=== PATIENT | male | born 1960 | race Caucasian/White ===

== ENCOUNTER → 2016-06-25 | Outpatient (CLI) | payer OTHER ==
[~2016-06-25] MED LIST: CRESTOR10 MG PO; HYDROCODONE-AP1 EAC6 PO; NABUMETONE 750750 M1 PO; PREDNISONE 5 MG5 M1 PO
== END ==
LOC: MRI 09:26
DX: M51.26 Other intervertebral disc displacement, lumbar region (principal); M48.06 Spinal stenosis, lumbar region; M25.552 Pain in left hip; M71.552 Other bursitis, not elsewhere classified, left hip

== ENCOUNTER → 2016-07-03 | Outpatient (CLI) | payer OTHER ==
[~2016-07-03] VITALS: Ht 157.5 cm; Wt 69.2 kg
--- NOTE | ~2016-07-03 | HPC ---
[facility] [place] [address] [address] PAIN MANAGEMENT CONSULTATION Name: TD LUJAN Room #: REG [facility] MMelody.#: [id number] Admission: 07/03/16 Attend Phys: Jaylen Duarte DO Discharge: Date of : 60 Report #: [id number] THIS REPORT FOR: //name// CC: Arash Lee DO Jaylen Duarte The patient is a very pleasant 56-year-old gentleman, who was seen in consultation at the request of Dr. Lee for evaluation of pain, low back, left buttock, posterior thigh down to the foot. The patient notes the pain began in the end of April without antecedent trauma and overuse, pain has gradually gotten worse, he has now noted weakness, paresthesia in the low back, buttock and left leg. Denies saddle anesthesia or bowel or bladder continence changes. He has tried nabumetone, prednisone Dosepak and hydrocodone, which makes the pain "tolerable". He has tried physical therapy including stretching, heat and ice. Notes the pain is a 7-9 on a 0-10 visual analog scale, exacerbated with any and all movement. Describes symptoms that are continuous, burning and stabbing. REVIEW OF SYSTEMS: Complete review of systems attached to chart and gone over with the patient, is , does not smoke or drink alcohol to excess. History of renal insufficiency diagnosed as a child, has been on steroids supression for quite some time, currently takes prednisone 5 mg b.i.d. , dyslipidemia for which he takes Crestor. Otherwise, review of systems pretty unremarkable, did have right knee arthroscopy in 2013. 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 He has not lost significant work secondary to pain. Pain impact score; however, averages about 8.2 for all indices queried (51/70). PHYSICAL EXAMINATION: GENERAL: Reveals 5 feet 2 and 69 kilograms gentleman, BMI is 27.9 kg/m2. VITAL SIGNS: Blood pressure is 134/89, pulse 95 and respirations 16. NEUROLOGIC: Cranial 2-12 are grossly intact. HEENT: Pupils are equal, reactive to light and accommodation. Extraocular muscles are intact. NECK: Cervical range of motion is full. Thyroid unremarkable. Upper extremity strength is preserved. HEART: Regular and rhythmical without murmur. LUNGS: Clear to auscultation. The patient arises from chair using armrest, has mildly antalgic gait. EXTREMITIES: Favoring the left leg, lumbar flexion is quite limited to 40 degrees. Lower extremity strength is generally symmetric; however, about 4/5. Positive straight leg raise at 30 degrees on the left. Patellar and Achilles reflexes note modest diminution of the left patellar reflex. Achilles reflexes are symmetric. SKIN: Integument is intact. [facility] [address] [place] [address] PAIN MANAGEMENT CONSULTATION Name: TD LUJAN Room #: REG [facility].#: [id number] Admission: 07/03/16 Attend Phys: Jaylen Duarte DO Discharge: Date of : 60 Report #: [id number] DIAGNOSTIC STUDIES: Include MRI of the lumbar spine from 06/25/2016 noting L4-L5 to have a left paracentral disk extrusion. ASSESSMENT: Symptomatic lumbar radiculopathy by clinical exam, failing conservative therapy for greater than six weeks correlating with diagnostic MRI findings. RECOMMENDATIONS: 1. Continue nabumetone 70 b.i.d. I have taken the liberty of renewing hydrocodone 5/325, dispense 60 tablets one tablet q. 6 hours as needed for pain. 2. Fluoroscopic-guided epidural injection today at L4-L5. Followup in 3 weeks to evaluate efficacy. PROCEDURE NOTE: Lumbar epidural injection under fluoroscopy. PROCEDURE NOTE: After both written and informed consent to include risk of spinal cord damage, increased pain, weakness and dural puncture, the patient was taken to the fluoroscopy suite, placed in the prone position. After sterile prep and drape, a skin wheal with lidocaine was raised. A 22-gauge epidural Tuohy needle was inserted in the midline at L4-L5 with good loss to resistance. Negative aspiration for cerebrospinal fluid or blood was noted. Then 1 mL of Omnipaque under biplanar fluoroscopy showed good spread within the epidural space. This was followed with 80 mg of triamcinolone plus 1 mL of 1.5% preservative-free Xylocaine, 0.5 mL Xylocaine was then injected to flush the needle; it was removed. The patient was monitored for an appropriate period of time and discharged in good and stable condition. Thank you for allowing me to participate in the patient's care. I will keep you abreast of his progress. <ELECTRONICALLY SIGNED> By: Jaylen Duarte DO 07/07/16 0917 1708 0014 Jaylen Duarte DO /nt
[2016-07-03 14:42] VITALS: BP 134/89
== END ==
LOC: PAIN 07:22
DX: M54.16 Radiculopathy, lumbar region (principal)

== ENCOUNTER → 2016-09-19 | Outpatient (CLI) | payer OTHER ==
[~2016-09-19] VITALS: Ht 157.5 cm; Wt 68.9 kg
--- NOTE | ~2016-09-19 | HPC ---
[facility] [place] [address] [address] [place] [address] PAIN MANAGEMENT CONSULTATION Name: TD LUJAN Room #: REG [facility] Raisa.#: [id number] Admission: 09/19/16 Attend Phys: Jaylen Duarte DO Discharge: Date of : 60 Report #: [id number] THIS REPORT FOR: //name// CC: Arash Duarte The patient is a very pleasant 56-year-old gentleman being treated for symptomatic lumbar radiculopathy, left low back with a greater than 65% relief from 2 prior injections, initial injection on 07/03/2016, second injection 07/24/2016. The patient returns to pain clinic today, it has been greater than 30 days since his last injection. Again, he had 60+ percent relief with pain somewhat recurring more left lumbar radicular pattern. We reviewed his MRI noting left paracentral caudal disk extrusion at L4-L5 with associated mass effect on the left L5 nerve root. The last injection afforded 70% relief, lasting 6 weeks, pain has begun to reoccur. PHYSICAL EXAMINATION: Show pleasant 56-year-old gentleman, BMI is 27.8 kilograms per meter squared. Subjective pain score is 4-06/23/10. Blood pressure 146/77, pulse of 107, respirations 16. Rises from chair using armrest. Modestly antalgic gait, diffuse tenderness across the low back, positive straight leg raise on the left. ASSESSMENT: Symptomatic lumbar radiculopathy. RECOMMENDATION: 1. We will renew nabumetone prescription 750 mg b.i.d. We talked about general concerns with nonsteroidal antinflammatory medications and cardiac risk in general, talked about using the nabumetone on a nondaily basis. 2. Lumbar epidural injection under fluoroscopy today. 3. Follow up simply as needed. PROCEDURE NOTE: Lumbar epidural injection under fluoroscopy. PROCEDURE NOTE: After both written and informed consent to include risk of spinal cord damage, increased pain, weakness and dural puncture, the patient was taken to the fluoroscopy suite, placed in the prone position. After sterile prep and drape, a skin wheal with lidocaine was raised. A 22-gauge epidural Tuohy needle was inserted in the midline at L4-L5 with good loss to resistance. Negative aspiration for cerebrospinal fluid or blood was noted. Then 1 mL of Omnipaque under biplanar fluoroscopy showed good spread within the epidural space. This was followed with 80 mg of triamcinolone plus 1 mL of 1.5% preservative-free Xylocaine, 0.5 mL Xylocaine was then injected to flush the [address] [address] PAIN MANAGEMENT CONSULTATION Name: TD LUJAN Room #: REG [facility] Tiffany#: [id number] Admission: 09/19/16 Attend Phys: Jaylen Duarte DO Discharge: Date of : 60 Report #: [id number] needle; it was removed. The patient was monitored for an appropriate period of time and discharged in good and stable condition. By: [id number] Jaylen Duarte DO /nt
[2016-09-19 12:54] VITALS: BP 146/77
== END | disposition home or self-care (01) ==
LOC: PAIN 08-20 13:55
DX: M54.16 Radiculopathy, lumbar region (principal)

== ENCOUNTER → 2016-10-16 | Outpatient (CLI) | payer OTHER ==
[~2016-10-16] VITALS: Ht 157.5 cm; Wt 67.9 kg
[~2016-10-16] MED LIST changes: +ZANAFLEX4 MG PO
--- NOTE | ~2016-10-16 | HPC ---
[facility] [place] [address] [place] [address] PAIN MANAGEMENT CONSULTATION Name: TD LUJAN Room #: REG [facility] Raisa.#: [id number] Admission: 10/16/16 Attend Phys: Jaylen Duarte DO Discharge: Date of : 60 Report #: [id number] THIS REPORT FOR: //name// CC: Arash Duarte HISTORY OF PRESENT ILLNESS: The patient is a very pleasant 56-year-old gentleman being treated for symptomatic lumbar radiculopathy. He has had 3 epidural injections, 07/03/2016, 07/24/2016 and 09/19/2016. The patient notes that while each injection afforded good transient relief, symptoms have recurred. He has paresthesia in the lateral aspect of the left leg down to the foot and some pain in the left gluteal area. He notes nabumetone is really not helping much. He does take hydrocodone p.r.n. 5/325 on a nondaily basis. Incidentally, he does take prednisone 5 mg, which he has b.i.d. 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 We did review patient's MRI from 06/25/2016, L4-L5 notes left paracentral caudad disk extrusion into the left lateral recess associated with mass effect in the left ventral thecal sac and central left L5 nerve root. PHYSICAL EXAMINATION: Shows a pleasant 56-year-old gentleman, BMI is 27.4 kilograms per meter squared. Vital signs are stable as noted in the EMR. Rises from a chair using armrest. Gait is tandem. Positive straight leg raise on the left. Henry test is negative though he is a little tender over the left SI, strength is generally symmetric. ASSESSMENT: Symptomatic lumbar radiculopathy with a left L4-L5 herniated disk. Today, we discussed therapeutic options at length. I used a plastic spine model to describe patient's specific anatomy and suggested he may benefit from minimally invasive decompressive laminectomy. 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 He is familiar with back surgery, having seen this in the operating room. He is loathe to move forward with surgery if it can at all be avoided. I told him my concerns were for loss of strength, the paresthesia in the left lateral leg certainly is indicative of nerve root compromise, leading to concern that loss of strength may ensue. Fortunately, it appears to be not problematic at this time. His chief pain is pain in the left gluteal area. I believe this is all still along that L5 nerve root. RECOMMENDATIONS: Ultimately, we have elected to continue p.r.n. hydrocodone 5/325. In fact, I have taken the liberty of renewing his prescription for 60 tablets. We will start some tizanidine 4 mg up to t.i.d., have him discontinue the nabumetone due to lack of efficacy. Did suggest that he use [id number] naproxen sodium (Aleve) p.r.n. when he does yardwork and increased physical activity. [facility] [address] [place] [address] PAIN MANAGEMENT CONSULTATION Name: TD LUJAN Room #: REG CL[facility] Allen#: [id number] Admission: 10/16/16 Attend Phys: Jaylen Duarte DO Discharge: Date of : 60 Report #: [id number] Again, the patient was given contact information for Dr. Babak Bustos and Dr. Michael Wdadell. The patient again expressed desire to not move forward with surgery. He understands the risks and the "red flags" concerning progression of symptoms including weakness in the legs, saddle anesthesia or bowel or bladder continence changes. The patient was discharged in good and stable condition. <ELECTRONICALLY SIGNED> By: Jaylen Duarte DO 10/17/16 0925 1225 0012 Jaylen Duarte DO /nt
[2016-10-16 10:48] VITALS: BP 132/83
== END ==
LOC: PAIN 07:35
DX: M51.26 Other intervertebral disc displacement, lumbar region (principal); E11.9 Type 2 diabetes mellitus without complications

== ENCOUNTER → 2016-12-15 | Outpatient (CLI) | payer OTHER ==
[~2016-12-15] MED LIST changes: +NAPROSYN500 MG PO; +VALACYCLOVIR500 MG PO
--- NOTE | ~2016-12-15 | HPC ---
[facility] [address] [address] PAIN MANAGEMENT CONSULTATION Name: TD LUJAN Room #: REG [facility] Tiffany#: [id number] Admission: 12/15/16 Attend Phys: Jaylen Duarte DO Discharge: Date of : 60 Report #: [id number] THIS REPORT FOR: //name// CC: Arash Duarte The patient is a very pleasant 56-year-old gentleman being treated for symptomatic lumbar radiculopathy. He has had 3 lumbar epidural injections, June, July and August with overall improvement of left L4 radicular pain; however, symptoms continued to be problematic. It interferes with function. He has stopped mowing his yard due to pain. He is able to continue work, but notes the pain does interfere with function. Fortunately, he denies saddle anesthesia or bowel or bladder continence changes. We did talk today again at length about moving forward with minimally invasive decompressive laminectomy. PHYSICAL EXAMINATION: Shows pleasant 56-year-old gentleman. Vital signs are stable as noted in the EMR. Rises from chair using armrest. Gait is generally tandem. Slight decreased left hip flexion strength and lower extremity extension, though this is fairly nominal. Left patellar reflex is actually a bit ____ 3/4, right is 1/4, Achilles reflexes 1/4 and symmetric. Straight leg raise is nominally positive on the left. We reviewed the MRI, which does note herniated nucleus pulposus at L4-L5 compromising left L4-L5 neural foramen. The patient is taking hydrocodone 5/325 two or three a day as needed for pain, some days none. The patient to trial nabumetone, but had a little bit of heartburn with this. He is actually doing fairly well with [id number]-[id number] Aleve typically 2 tablets in the morning. We did talk today about concern for long-term use of nonsteroidal anti-inflammatory medications including cardiac disease, renal dysfunction and gastroesophageal reflux. ASSESSMENT: Symptomatic lumbar radiculopathy, having failed conservative therapy including epidural injections, physical therapy, nonsteroidal anti-inflammatory medications, currently taking some low dose opiate analgesics but noting pain is interfering with function. RECOMMENDATION: We will renew hydrocodone 5/325, enabling up to 4 tablets a day hence the patient get 120 tablets, 1 refill. I suspect that this should last for 45-60 days. We will refer the patient to Dr. Jamie Pittman for consideration for decompressive surgery. Follow up simply as needed. <ELECTRONICALLY SIGNED> By: Jaylen Duarte DO 12/19/16 1606 1248 1315 Jaylen Duarte DO /nt
[2016-12-15 12:37] VITALS: BP 142/96
== END | disposition home or self-care (01) ==
LOC: PAIN 06:55
DX: M54.16 Radiculopathy, lumbar region (principal); F11.90 Opioid use, unspecified, uncomplicated

== ENCOUNTER → 2017-02-06 | Outpatient (CLI) | payer OTHER | LOC: RAD 08:15 | DX: Z01.818 Encounter for other preprocedural examination (principal) ==

== ENCOUNTER → 2017-02-20 | Outpatient (CLI) | payer OTHER ==
[~2017-02-20] VITALS: Ht 157.5 cm; Wt 69.4 kg
--- NOTE | ~2017-02-20 | HPC ---
[facility] [place] [address] [address] [place] [address] PAIN MANAGEMENT CONSULTATION Name: TD LUJAN Room #: REG [facility] Raisa.#: [id number] Admission: 02/20/17 Attend Phys: Jaylen Duarte DO Discharge: Date of : 60 Report #: [id number] THIS REPORT FOR: //name// CC: Arash Duarte HISTORY OF PRESENT ILLNESS: The patient is a 57-year-old gentleman with ongoing lumbar radicular pain requiring high risk complex medication management. Last seen in the pain clinic on 12/15/2016. He had had a series of three epidural injections in June, July and August. He had ongoing lumbar radicular pain, I referred the patient to a surgeon and in fact he is having a decompressive laminectomy on 02/27/2017. Hopefully, this will be minimally invasive and in fact it is scheduled as an outpatient procedure. He is following up with Dr. Jamie Pittman for this. He has been stable on low dose opiate analgesic, hydrocodone 5/325 one tablet up to 4 times a day. Naprosyn 5 mg b.i.d., though he has discontinued this as appropriate 7 days prior to surgery. Using tizanidine for spasm. He returns to pain clinic today noting pain is 6 on a V ; notes intermittent burning, stabbing pain. He has been enthusiastic about moving forward with his surgery next week. PHYSICAL EXAMINATION: Otherwise unchanged, 57-year-old gentleman. BMI is 28 kilograms per meter squared. Vital signs stable. Modestly antalgic gait, diffuse tenderness across the low back. Slight decreased left leg pain with paresthesia into that foot. RECOMMENDATION: Continue hydrocodone 5/325, I have taken the liberty of writing for up to 120 tablets (q.i.d.) to wean after surgery; tizanidine 4 mg t.i.d., 90 with 1 refill. Hopefully, the patient will be able to completely wean off opiate analgesics following surgery. I have little doubt that this will occur. We will see the patient on an as needed basis. <ELECTRONICALLY SIGNED> By: Jaylen Duarte DO 02/26/17 0847 1223 2042 Jaylen Duarte DO /nt
[2017-02-20 13:06] VITALS: BP 154/78
== END | disposition home or self-care (01) ==
LOC: PAIN 12:57
DX: M54.16 Radiculopathy, lumbar region (principal); Z98.890 Other specified postprocedural states; Z79.899 Other long term (current) drug therapy

== ENCOUNTER → 2017-08-10 | Outpatient (CLI) | payer OTHER ==
[~2017-08-10] VITALS: Ht 157.5 cm; Wt 68.9 kg
[~2017-08-10] MED LIST changes: +CRESTOR20 MG PO; +HYDROCORTISONE PO; +MELATONIN5 M1 PO; +MULTIVITAMINS1 EAC7 PO
--- NOTE | ~2017-08-10 | P ---
[facility] [place] [address] [address] PROCEDURE REPORT Name: TD LUJAN Room #: REG [facility].#: [id number] Admission: 08/10/17 Attend Phys: Babak Fields MD Discharge: Date of : 60 Report #: [id number] THIS REPORT FOR: //name// CC: Babak Webber MD BRIEF HISTORY: The patient is a 57-year-old male with history of rectal polyps and pathologically they were found to be carcinoid. He presents for surveillance colonoscopy due to history of colon polyps, carcinoids. PREOPERATIVE DIAGNOSIS: History of colon polyps, carcinoid. POSTOPERATIVE DIAGNOSES: Small internal hemorrhoids. MEDICATIONS: Deep sedation with propofol per anesthesia. SPECIMEN: None. ESTIMATED BLOOD LOSS: None. PROCEDURE: Colonoscopy to cecum and terminal ileum. FINDINGS: Prior to propofol sedation, procedure of colonoscopy discussed with the patient as well as potential risks and its complications. He indicates he understands and desires to proceed. DESCRIPTION OF PROCEDURE: With the patient in left lateral decubitus position, digital examination was completed which revealed no abnormalities. Subsequently, the salgomed video colonoscope was introduced in the rectum, advanced under direct vision to the cecum. Done with minimal difficulty. The cecum was identified by the ileocecal valve and appendiceal orifice. I was able to visualize the distal segment of terminal ileum, which was inspected and noted to be unremarkable. At that point, scope was withdrawn and careful circumferential views were obtained. Upon slow withdrawal of the scope, there were noted to be some prep limitations in the proximal colon. There was coating of the cecum and ascending colon with bilious material. We are able to clean up a lot of this, but not every bit of it could be removed. No mass lesions or polypoid lesions were seen. A small lesion or flat lesion could have been overlooked. As we withdrew the scope beyond the hepatic flexure, the prep was generally good. The mucosa was within normal limits, normal vascular pattern, normal light reflex. No neoplastic or inflammatory changes were seen. The scope was withdrawn into the rectum and no abnormalities were seen. The distal rectum, tattoo hollis were seen at the previous polypectomy site and no residual polyp or polypoid changes were seen. Upon retroflexion, small hemorrhoids were seen. Scope was withdrawn. The patient tolerated the procedure well. [address] [address] PROCEDURE REPORT Name: TD LUJAN Room #: REG [facility]#: [id number] Admission: 08/10/17 Attend Phys: Babak Fields MD Discharge: Date of : 60 Report #: [id number] CONDITION OF THE PATIENT UPON DISCHARGE: Following procedure, the patient is drowsy, arousable, conversant and will be discharged to home when fully ambulatory. INSTRUCTIONS TO THE PATIENT AND FAMILY AT THE TIME OF DISCHARGE: No polyps removed today. Due to some limitations in the proximal ascending colon, I would suggest return in 3 years for next colonoscopy. Would suggest a high fiber diet. His last colonoscopy was 5 years ago. Withdrawal time from the cecum was 13 minutes 56 seconds. <ELECTRONICALLY SIGNED> By: Babak Fields MD 08/11/17 1617 0936 1028 Babak Fields MD /nt
== END | disposition home or self-care (01) ==
LOC: GI 07:24
DX: Z09 Encounter for follow-up examination after completed treatment for conditions other than malignant neoplasm (principal); Z86.010 Personal history of colon polyps; K64.8 Other hemorrhoids; E78.00 Pure hypercholesterolemia, unspecified; K21.9 Gastro-esophageal reflux disease without esophagitis; Z79.899 Other long term (current) drug therapy; Z87.891 Personal history of nicotine dependence; Z98.890 Other specified postprocedural states
CPT/HCPCS: 62110; 62900

== ENCOUNTER → 2019-08-24 | Outpatient (CLI) | payer OTHER | LOC: RAD 08:18 | DX: M18.11 Unilateral primary osteoarthritis of first carpometacarpal joint, right hand (principal); M25.841 Other specified joint disorders, right hand ==

== ENCOUNTER → 2020-01-23 | Outpatient (CLI) | payer OTHER ==
[2020-01-23 10:03] LABS: HEMATOCRIT 46.4 % (42.0-52.0); HEMOGLOBIN 15.6 gm/dL (14.0-18.0); MCH 29.8 pg (26.0-34.0); MCHC 33.5 g/dL (28.0-37.0); MCV 88.9 fL (80.0-100.0); PLATELET COUNT 177 thou/uL (150-400); RBC 5.22 mil/uL (4.50-6.00); RDW 13.7 % (10.5-14.5); WBC 5.9 thou/uL (4.0-11.0)
[2020-01-23 11:24] LABS: ALBUMIN 4.2 g/dL (3.4-5.0); ANION GAP 12 mmol/L (7-16); BUN 19 mg/dL (7-18); CALCIUM 9.1 mg/dL (8.5-10.1); CHLORIDE 102 mmol/L (98-107); CHOLESTEROL 187 mg/dL (<200); CO2 27 mmol/L (21-32); CREATININE 1.1 mg/dL (0.7-1.3); GLUCOSE 89 mg/dL (74-106); HDL CHOLESTEROL 71 mg/dL (>40); LDL CHOLESTEROL 105 mg/dL (<100); POTASSIUM 4.5 mmol/L (3.5-5.1); SGOT 23 U/L (15-37); SGPT 38 U/L (30-65); SODIUM 141 mmol/L (136-145); TC:HDL 2.6 Ratio (Not establshd); TOTAL BILIRUBIN 0.5 mg/dL (0.2-1.0); TOTAL PROTEIN 6.8 g/dL (6.4-8.2); TRIGLYCERIDE 59 mg/dL (<150); VLDL 12 mg/dL (<40)
[2020-01-23 12:34] LABS: ABSOLUTE NEUTROPHILS 2.7 thou/uL (1.4-8.2); ATYPICAL LYMPHS 3 %
[2020-01-23 12:35] LABS: LARGE PLATELETS OCCASIONAL
== END ==
LOC: LAB 08:03
PROVIDERS: ATTEND Internal Medicine
DX: M81.8 Other osteoporosis without current pathological fracture (principal); E78.2 Mixed hyperlipidemia; E25.0 Congenital adrenogenital disorders associated with enzyme deficiency; D3A.029 Benign carcinoid tumor of the large intestine, unspecified portion

== ENCOUNTER → 2020-08-27 | Outpatient (CLI) | payer OTHER | LOC: LAB 07:58 | PROVIDERS: ATTEND Internal Medicine | DX: E55.9 Vitamin D deficiency, unspecified (principal) ==

== ENCOUNTER → 2020-10-05 | Outpatient (CLI) | payer OTHER | LOC: MRI 13:59 | PROVIDERS: ATTEND Physician Assistant | DX: M19.011 Primary osteoarthritis, right shoulder (principal); M75.111 Incomplete rotator cuff tear or rupture of right shoulder, not specified as traumatic; M25.511 Pain in right shoulder ==

== ENCOUNTER → 2021-01-25 | Outpatient (CLI) | payer OTHER ==
[2021-01-25 09:04] LABS: ABSOLUTE NEUTROPHILS 3.3 thou/uL (1.4-8.2); BASOPHILS 1.1 % (0.0-2.0); EOSINOPHILS 1.6 % (0.0-3.0); HEMATOCRIT 45.2 % (42.0-52.0); HEMOGLOBIN 15.5 gm/dL (14.0-18.0); LYMPHOCYTES 34.3 % (24.0-44.0); MCH 30.1 pg (26.0-34.0); MCHC 34.2 g/dL (28.0-37.0); MCV 88.1 fL (80.0-100.0); MONOCYTES 11.8 % (1.0-8.0); PLATELET COUNT 211 thou/uL (150-400); POLYS 51.2 % (36.0-66.0); RBC 5.13 mil/uL (4.50-6.00); RDW 13.2 % (10.5-14.5); WBC 6.4 thou/uL (4.0-11.0)
[2021-01-25 09:22] LABS: ALBUMIN 4.1 g/dL (3.4-5.0); ANION GAP 8 mmol/L (7-16); BUN 15 mg/dL (7-18); CHLORIDE 99 mmol/L (98-107); CHOLESTEROL 167 mg/dL (<200); CO2 28 mmol/L (21-32); CREATININE 1.1 mg/dL (0.7-1.3); GLUCOSE 107 mg/dL (74-106); HDL CHOLESTEROL 67 mg/dL (>40); LDL CHOLESTEROL 84 mg/dL (<100); POTASSIUM 4.4 mmol/L (3.5-5.1); SGOT 23 U/L (15-37); SGPT 41 U/L (30-65); SODIUM 135 mmol/L (136-145); TC:HDL 2.5 Ratio (Not establshd); TOTAL BILIRUBIN 0.6 mg/dL (0.2-1.0); TOTAL PROTEIN 7.2 g/dL (6.4-8.2); TRIGLYCERIDE 83 mg/dL (<150); VLDL 17 mg/dL (<40)
[2021-01-25 13:10] LABS: PSA TOTAL 3.9 ng/mL (0.0-4.0)
[2021-01-26 08:11] LABS: FREE PSA 0.54 ng/mL; FREE PSA RATIO 13.8 % (())
== END ==
LOC: LAB 08:08
PROVIDERS: ATTEND Internal Medicine
DX: Z00.00 Encounter for general adult medical examination without abnormal findings (principal); Z12.5 Encounter for screening for malignant neoplasm of prostate; E78.2 Mixed hyperlipidemia

== ENCOUNTER → 2021-02-13 | Outpatient (CLI) | payer OTHER | LOC: NUC 13:26 | PROVIDERS: ATTEND Internal Medicine Endocrinology, Diabetes & Metabolism | DX: M85.80 Other specified disorders of bone density and structure, unspecified site (principal) ==

== ENCOUNTER → 2021-02-20 | Outpatient (CLI) | payer OTHER | LOC: RAD 09:28 | PROVIDERS: ATTEND Internal Medicine | DX: M16.11 Unilateral primary osteoarthritis, right hip (principal); M25.551 Pain in right hip ==

== ENCOUNTER 2021-08-12 08:07 | Emergency (ER) | payer OTHER ==
[~2021-08-12] VITALS: Ht 157.5 cm; Wt 69.0 kg
[2021-08-12 08:08] VITALS: BP 158/84
== END 2021-08-12 09:38 | disposition home or self-care (01) ==
LOC: ER 08:07
DX: S76.911A Strain of unspecified muscles, fascia and tendons at thigh level, right thigh, initial encounter (principal); S80.01XA Contusion of right knee, initial encounter; E78.00 Pure hypercholesterolemia, unspecified; K21.9 Gastro-esophageal reflux disease without esophagitis; W00.2XXA Other fall from one level to another due to ice and snow, initial encounter; Y93.89 Activity, other specified; Y92.89 Other specified places as the place of occurrence of the external cause; Y99.8 Other external cause status